=== PATIENT | female | born 1990 | race Caucasian/White ===

== ENCOUNTER 2022-10-20 10:55 | Day surgery (SDC) | payer OTHER, SELFPAY ==
--- NOTE | 2022-10-16 07:51 | EKG12_ITS ---
Test Reason : PRE-OP Blood Pressure : / mmHG Vent. Rate : 078 BPM Atrial Rate : 078 BPM P-R Int : 156 ms QRS Dur : 094 ms QT Int : 406 ms P-R-T Axes : 023 008 012 degrees QTc Int : 462 ms Normal sinus rhythm Normal ECG Confirmed by BC NEIL, VIDHYA ([id number]), editorial writer SHANTI COOLEY ([id number]) on 10/17/2022 9:48:28 AM Referred By: Luisa Nicholas Confirmed By:VIDHYA YANCEY MD
[2022-10-16 08:35] LABS: Hematocrit 41.7 % (37-47); Hemoglobin 13.6 g/dL (12.0-15.0); Mean Corp Hgb Conc 32.6 g/dL (32-36); Mean Corpuscular Hgb 32.5 pg (27.0-32.0); Mean Corpuscular Volume 99.8 fL (81-99); Mean Platelet Vol. 9.5 fl (6.2-12.0); Platelet Count 319 K/mm3 (150-450); RBC Distribution Width CV 13.6 % (11.6-14.6); RBC Distribution Width SD 50.2 fl (35.1-43.9); Red Blood Count 4.18 M/mm3 (4.2-5.4); White Blood Count 8.6 K/mm3 (4.4-11.0)
[2022-10-16 08:58] LABS: Anion Gap 7 (5-15); BUN 11 mg/dL (7-18); Calcium,Total 8.8 mg/dL (8.5-10.1); Chloride 104 mmol/L (98-107); Creatinine, Serum 0.73 mg/dL (0.55-1.02); EST Glomerular Filtration Rate 97 mL/min (>60); Est Glom Filt Rate - Afr Amer 118 mL/min (>60); Glucose 133 mg/dL (74-106); Potassium 3.5 mmol/L (3.5-5.1); Sodium Level 138 mmol/L (136-145)
[2022-10-20] VITALS (7 sets, daily range): BP systolic 114–135; BP diastolic 77–104; PULSE 73–95; RESP 12–18; TEMP 36.1–37; O2SAT 92–98; BMI 39.3
--- NOTE | 2022-10-20 | FALS_PTH ---
PATIENT: BETITO TYLER [place]: [facility] [place] U[place][id number] AGE/SX: 31/F ROOM: RE10/20/[address]: Dr. Luisa Nicholas, MDDOB: 1990 BED: DIS: 10/20/2022 SPEC #: [id number] RECD: 10/20/22 14:59 STATUS: BLANCA CONTRERASDolores #: [id number] KINGSLEY: 10/20/22 00:[address]: Luisa Nicholas DEPT: SURGICAL PATHOLOGY RECD BY: Oumar Jean ENTERED: 10/23/22 08:40 SP TYPE: FALL TUBES OTHR DR: Summer Escobar DO Tissues: Fallopian tube Procedures: Surgery Specimen Level II HEADER OPERATION: Laparoscopic salpingectomy PRE-OP DIAGNOSIS: Sterilization TISSUE SUBMITTED: Bilateral fallopian tubes MICROSCOPIC DIAGNOSIS Right and left fallopian tubes, bilateral salpingectomies: Complete cross-sections of fallopian tubes with no pathologic change. AM:ramos 10/24/2022 MICROSCOPIC DESCRIPTION Slides are reviewed. GROSS DESCRIPTION Received in fixative is one container labeled with the patient's name and designated bilateral fallopian tubes. The specimen consists of bilateral fallopian tubes including fimbrial ends measuring 7.0 cm in length and 0.5 cm in diameter and 7.5 cm in length and 0.5 cm in diameter. The fallopian tubes are not identified as right or left. Sections reveal unremarkable cut surfaces. [employer] sections are submitted in two cassettes with each cassette containing one fallopian tube. / JOCELYNN:ramos 10/23/2022 TC:4 CPT: 23333 x2
--- NOTE | 2022-10-20 08:53 | PCM.HP.BLA ---
History and Physical Date of Admission: 10/20/22 Pre-Op History and Physical ? HPI: The patient is a 31 year old female presenting for sterilization consultation. Patient reports does not have any children and does not desire future childbearing capabilities. Patient reports has been on multiple controls in the past. She states that she also has a history of a tubo-ovarian abscess on the right side after a UTI. Patient states at the time she had an IUD and that was removed. She denies ever having surgery on the tubo-ovarian abscess. Patient offers no other concerns today. She understands that this procedure is irreversible and that if she ever decides to have children in the future she would have to undergo reproductive assistance. ? Pre-operative visit. She is scheduled for laparoscopic bilateral salpingectomy, for desires sterilization on October 20, 2022. Procedure discussed along with risks, benefits and complications. Other alternatives discussed for management. Consent form signed? Yes. ? ? PAST MEDICAL HISTORY PAST MEDICAL HISTORY Diagnosis Date ? Bursitis of left knee ? ? High blood pressure ? ? Ovarian abscess 2020 ? ? PAST SURGICAL HISTORY PAST SURGICAL HISTORY Procedure Laterality Date ? COLONOSCOPY GEN ANES ? 2019 ? founnd a polyp, repeat 2022 ? CYST/MOLE REMOVAL Right 2018 ? on breast, premalignant ? FOOT SURGERY HX Right 2015 ? BUNION REMOVAL ? INDUCED HX ? 05/2022 ? approximately 5 weeks gestation ? PAST SURGICAL HISTORY OF ? 2020 ? back surgery at [facility] ? TOOTH EXTRACTION ? 2018 ? WISDOM TEETH EXTRACTIONS ? ? ? CURRENT MEDICATIONS Current Outpatient Medications Medication Sig Dispense Refill ? venlafaxine ER (EFFEXOR XR) 75 mg 24 hr capsule Take 1 capsule by mouth once daily. 30 capsule 0 ? amLODIPine (NORVASC) 5 mg tablet Take 5 mg by mouth once daily. ? ? ? metoprolol (LOPRESSOR) 5 mg D5W ? amLODIPine (NORVASC) 5 mg tablet ? No current facility-administered medications for this visit. ? ? ALLERGIES: Prednisone ? PERSONAL HISTORY: SOCIAL HISTORY Social History ? Tobacco Use ? Smoking status: Every Day ? ? Types: Cigarettes ? Smokeless tobacco: Never Vaping Use ? Vaping Use: current everyday user Substance Use Topics ? Alcohol use: Yes ? ? Comment: socially ? Drug use: No ? FAMILY HISTORY: FAMILY HISTORY FAMILY HISTORY Problem Relation Age of Onset ? Diabetes Father ? ? Glaucoma No Family History ? ? Macular Degen No Family History ? ? ? REVIEW OF SYMPTOMS: negative except as noted above PHYSICAL EXAMINATION: ? VITALS: Blood pressure 120/82, height 5' 2 (1.575 m), weight 216 lb (98 kg), last menstrual period 09/26/2022. ? GENERAL: The patient is well nourished, well hydrated in no acute distress. , The patient is oriented to time, place, and person. NECK: full range of motion LUNGS: Clear to auscultation bilaterally. no wheezes, rhonchi or rales HEART: Regular rate and rhythm, Normal heart sounds, and No murmurs or gallops GENITALIA: deferred ? IMPRESSION: 31-year-old female who desires permanent sterilization. Declines reversible contraception. ? PLAN: Laparoscopic bilateral salpingectomy ? Pt has been counseled on risks/benefits and alternatives of surgery including but not limited to anesthesia, bleeding, infection, injury to pelvic structures including bowel, bladder, ureters and vessels. Pt wishes to proceed with surgery at this time. Patient understands the risk of regret. She understands this is irreversible. I also reviewed with patient that due to her history of a tubo-ovarian abscesses higher incidence of possible adhesions which could make the surgery more technically difficult. In the instance I am not able to remove the entire tube on the right side where the tubo-ovarian abscess was suspected to be able to place a clamp or remove as much of the tube is possible. In the instance that there were too many adhesions I discussed with the patient that the procedure may be aborted and she may be sent to minimally invasive gynecologic surgery. ? Due to history of hypertension CBC, BMP and an EKG were ordered prior to the procedure. ? Pre and postop restrictions and instructions were reviewed with the patient. ? I have reviewed and updated past medical and surgical history, medications and allergies Luisa Navarrete MD Office Visit on 10/03/2022 Office Visit on 10/03/2022 Note viewed by patient
[2022-10-20] MEDS: Lactated Ringers 1,000 ML 15 ML IV (11:21)
[2022-10-20 11:24] LABS: Internal QC Validated? YES +Cl - CLEAR BKGD; Pregnancy, Urine Negative Negative
[2022-10-20] MEDS: Ketorolac 30 MG/ML Syringe IV (13:39)
--- NOTE | 2022-10-20 14:24 | DCINST_ITS ---
Discharge Instructions Procedure Other Diet Discharge Diet: No restrictions Activity May resume sexual activity in: 2 weeks Lifting Restrictions: 20-25 lbs Dressing / Incision Call your doctor if your incision/area has: Continuous Slow Oozing, Sudden Increased Bleeding, Increased Pain/ Swelling, Increased Redness, Foul Smelling Discharge and Swelling at the incision site Call your doctor if you observe: Fever of 101 or Higher, Inability to urinate, Inability to have a bowel movement, Using more than 1 pad per hour and Uncontrolled pain Additional Dressing/Incision Instructions:: You have skin glue over your incision sites, do not pick off. You may shower and let the soap and water run over the incision sites and dab dry. Follow Up Care Please Follow Up With: Luisa Nicholas MD When: 1-2 weeks post OP if you need an appointment please call [phone] Test Results: Test results from this visit will be discussed in further detail at your follow- up appointment, if applicable. Discharge Plan Admission Attending Provider: Luisa Nicholas Primary Care Provider: Summer Escobar Discharge Orders/Prescriptions Prescriptions: No Action venlafaxine 75 mg capsule,extended release 24hr 75 mg PO DAILY Label Comments: take 1 capsule by mouth once daily amlodipine 5 mg tablet 5 mg PO DAILY Label Comments: take 1 tablet by mouth once daily metoprolol tartrate 25 mg tablet 25 mg PO DAILY Label Comments: take 1 tablet by mouth twice a day Referrals / Follow Up: Summer Escobar, [Primary Care Provider] -
--- NOTE | 2022-10-23 08:10 | OP.PCM_ITS ---
Report of Operation Date of Procedure: 10/20/22 Pre-Operative Diagnosis: desires sterilization Post-Operative Diagnosis: same Surgery/Procedure Performed:: laparoscopic bilateral salpingectomy Description of Surgical Findings:: normal tubes and ovaries bilaterally Surgeon: Luisa Nicholas life agent: None (Ruth [place] Conde MS3) Type of Anesthesia: General and Local Special Medications: 0.5% marcaine Specimen's removed: bilateral fallopian tubes Estimated Blood Loss (mL): 10cc Fluids Replaced: 1000 Description of Procedure: After informed consent was obtained patient was taken to the operating room she was placed in supine position she was given anesthesia.? She was then placed in the [facility] stirru and she was prepped and draped in normal sterile fashion.? Bladder was drained prior to the start of procedure.? At this time attention was turned to the vaginal portion where weighted speculum placed at posterior fornix vagina single-tooth tenaculum was used to gently grasp the internal the cervix.? uterus was gently sounded to approximately 7 cm.? Uterine manipulator was placed without difficulty.? Legs then placed in parallel with the abdomen the tenaculum and the weighted speculum were removed.? 2 towel clamps were placed at level of umbilicus. Marcaine was injected infraumbilical and a small incision was made. The 5 mm trocar was placed under direct visualization.? CO2 gas was used to insufflate the intra-abdominal cavity.? Upon inspection no gross abnormalities appreciated- Uterine perforation noted from manipulator at fundus, minimal bleeding noted.? the uterus tubes and ovaries appeared to be normal.? At this time then the LLQ and RLQ ports were placed First Marcaine was injected and small incision was made a knife and the 5 mm trocars were placed. ? At this time then tubes were traced back to the fimbriated ends.? Enseal was used to coagulate and ligate along mesosalpinx bilaterally until tubes removed completely. Good hemostasis was appreciated. The manipulator was removed while watching laparoscopically. At this time Joel placed over fundal aspect but small oozing still noted so monopolor cautery used to coagulate area- excellent hemostatis noted. At this time procedure was deemed complete successful.? The gas was desufflated on from the intra-abdominal cavity.? The trochars were removed.? Skin was closed using 4-0 Monocryl in a subcutaneous fashion.? Dermabond glue was placed.? Instrument lap and needle counts were correct ?2.? The uterine manipulator was removed.? Vaginal sweep was performed it was negative.? There were no complications anticipated normal p ostoperative course for this patient. Grafts/Implants Used: none Procedure Start Time: 12:18 Procedure Stop Time: 12:54 Complications uterine perforation at uterine fundus at time of placement of uterine manipulator - ancef 2g given Admit VTE Documentation VTE Present on Admission: Yes VTE Mechan Device Prophylaxis: SCD's VTE Pharm Prophylaxis ordered?: No Reason prophylaxis not ordered:: Procedure Not Indicated
== END 2022-10-20 15:21 | disposition home or self-care (01) ==
LOC: SDC 10:55 → AC 10:56
PROVIDERS: Anesthesiology; PCP Family Medicine; Referring Provider Obstetrics & Gynecology; Visit Provider Obstetrics & Gynecology
PROC: (CPT 58661; principal; 2022-10-20 12:20)
DX: Z30.2 Encounter for sterilization (principal); F17.210 Nicotine dependence, cigarettes, uncomplicated; K21.9 Gastro-esophageal reflux disease without esophagitis; F32.A Depression, unspecified; F41.9 Anxiety disorder, unspecified
CPT/HCPCS: 58661; 00840; 36415; 80048; 81025; 85027; 88302; 93005; J7120; C1760; J2405

== ENCOUNTER → 2023-04-13 | Outpatient (CLI) | payer OTHER, SELFPAY ==
--- NOTE | 2023-04-13 12:55 | RAD_ITS ---
STUDY: X-RAY - CERVICAL SPINE REASON FOR EXAM: Female, 32 years old. Neck pain. TECHNIQUE: 5 view(s) of the cervical spine were obtained on 6 images. COMPARISON: None FINDINGS: Normal anterior atlantoaxial articulation. Normal odontoid process. Normal cervical lordosis. Diffuse minimal uncovertebral and facet sclerosis. Normal disc space heights. Normal visualized intervertebral neuroforamina. The soft tissue structures are normal. RAD/Cerv Spine 4 or 5 Views IMPRESSION: Diffuse minimal uncovertebral and facet sclerosis. No acute abnormality or erosive changes. Electronically Signed: Van Gr MD at 15:22 EDT ,
== END | disposition home or self-care (01) ==
LOC: MTRAD 12:44
PROVIDERS: PCP Family Medicine; Referring Provider Family Medicine; Visit Provider Family Medicine
DX: M54.2 Cervicalgia (principal)
CPT/HCPCS: 72050